=== PATIENT | female | born 1995 | race Caucasian/White ===

== ENCOUNTER 2016-06-18 12:47 | Emergency (ER) | payer MEDICAID ==
[2016-06-18 13:20] VITALS: BP 126/82
--- NOTE | 2016-06-18 13:42 | ERNOTE ---
Integumentary HPI - Narrative Date of Service: 06/18/16 - General Presenting Symptoms: rash Time Seen by Provider: 06/18/16 13:27 Source: patient Exam Limitations: no limitations - Immun/Allergies/Home Medications Immunizations: IMMUNIZATION HX Immunizations Up to Date Yes History of Influenza Vaccine Yes Hx Pneumococcal Vaccination No Allergies/Adverse Reactions: Allergies Allergy/AdvReac Type Severity Reaction Status Date / Time latex AdvReac Verified 06/18/16 13:21 Home Medications: HOME MEDICATIONS Divalproex Sodium 750 mg PO HS 06/18/16 [Last Taken Unknown] Escitalopram Oxalate [Lexapro] 10 mg PO DAILY 06/18/16 [Last Taken Unknown] Nortriptyline HCl 30 mg PO HS 06/18/16 [Last Taken Unknown] Zolpidem Tartrate 10 mg PO HS 06/18/16 [Last Taken Unknown] predniSONE [Prednisone] 3 tab PO DAILY #9 tab 06/18/16 [Last Taken Unknown] - History of Present Illness Narrative: Pt. comes in with c/o diffuse rash that she noticed upon awakening and is itchy. Pt. 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 Pt. denies any prehospital treatment or alleviating factors. Review of Systems - Review of Systems Constitutional: Present: no symptoms reported. Absent: recent illness, fever, chills, weakness, fatigue EYE: Present: no symptoms reported ENT: Present: no symptoms reported Respiratory: Present: no symptoms reported. Absent: shortness of breath, cough , wheezing Cardiology: Present: no symptoms reported. Absent: chest pain, palpitations, edema Gastrointestinal/Abdominal: Present: no symptoms reported. Absent: nausea, vomiting, diarrhea Genitourinary: Present: no symptoms reported Musculoskeletal: Present: no symptoms reported. Absent: back pain, joint pain Skin: Present: rash. Absent: change in color, change in hair/nails Neurological: Present: no symptoms reported Endocrine: Present: no symptoms reported All Other Systems: All systems neg except as marked - Patient's Past Medical History Patient History - Medical: Migraines Patient History - Cardiac/Respiratory: No pertinent hx Patient History - Cancer: No Hx of Cancer Patient History - Surgical Procedures: Other Patient History - Other: None LMP (females 10-50): now - Social History Living Situations: home Abuse History: No History of abuse Psych History: No pertinent hx Smoking Status: Never smoker Alcohol Use: occasionally Drug Use: none - Immunizations Immunizations Up to Date: Yes Hx Pneumococcal Vaccination: No History of Influenza Vaccine: Yes Physical Exam - Physical Exam General Appearance: Present: wd/wn, alert, no apparent distress Eye Exam: Normal inspection: bilateral, PERRL: bilateral, EOMI: bilateral Ears, Nose, Throat: Present: normal ENT inspection, normal pharynx. Absent: pharyngeal swelling, tonsillar swelling Neck: Present: normal inspection, nontender. Absent: lymphadenopathy (R), lymphadenopathy (L) Respiratory: Present: no respiratory distress, normal breath sounds, no accessory muscle use, chest nontender, lungs clear Cardiovascular/Chest: Present: regular rate, rhythm, no murmur, normal peripheral pulses Gastrointestinal/Abdominal: Present: normal bowel sounds, nontender, nondistended, soft, no organomegaly Back Exam: Present: normal inspection, normal range of motion, no CVA tenderness , no vertebral tenderness Extremity Exam: Present: non-tender, normal range of motion, no edema Neurological Exam: Present: alert, oriented, normal mood/affect, no motor/ sensory deficits Skin Exam: Present: normal color, warm/dry, skin rash - diffuse macular rash ED Progress - Date and Time Seen: Date and Time: 06/18/16 13:38 Rash appears suspicious for contact dermatitis due to poison maciel but pt. is unsure if the child she was babysitting yesterday was exposed to this. - Vital Signs Vital Signs: Vital Signs 06/18/16 13:16 Temperature 36.9 C Pulse Rate 81 Respiratory 16 Rate Blood Pressure 126/82 O2 Sat by Pulse 99 Oximetry - Progress/Reassessment Chief Complaint: Rash Departure Clinical Impression: Contact dermatitis Qualifiers: Contact dermatitis type: unspecified Contact dermatitis trigger: unspecified trigger Qualified Code(s): L25.9 - Unspecified contact dermatitis, unspecified cause - Departure Disposition: Home self-care Condition: Good Instructions: Contact Dermatitis, [id number] Additional Instructions: prednisone can affect mood, please stop medicine and call your primary provider. Referrals: Keith Guerrero MD [Primary Care Provider] - Prescriptions: predniSONE [Prednisone] 3 tab PO DAILY #9 tab
--- OUTSIDE RECORDS SUMMARY | 2016-06-18 13:45 | XMS REPORT | Continuity of Care Document ---
:1995 Author Organization [facility] ([facility]) Address [address] [place] [address] Phone [phone] Care Team Providers Name Role Phone Camilo Ryan Primary Care Provider [phone] Source Comments This disclosure is being made pursuant to the Care Everywhere program, applicable federal and state laws, and may not contain all informaitonavailable regarding this patient.[facility] ([facility]) Active Allergies and Adverse Reactions No Known Allergies Current Medications Prescription Sig. Disp. Refills Start Date End Date Status BUPROPION HCL (WELLBUTRIN SR Active PO) TRAZODONE HCL (TRAZODONE PO) Active MEDROXYPROGESTERONE ACETATE inject Active (DEPO-PROVERA IM) intramuscularly . Active Problems Problem Noted Date Heat intolerance 04/28/2012 Depression 04/28/2012 Social History Tobacco Use Types Packs/Day Years Used Date Never Smoker Smokeless Tobacco: Never Used Last Filed Vital Signs Vital Sign Reading Time Taken Blood Pressure 115/72 04/28/2012 12:39 PM [employer] Pulse 81 04/28/2012 12:39 PM [employer] Temperature 36.6 C (97.9 F) 04/28/2012 12:39 PM [employer] Respiratory Rate 18 04/28/2012 12:39 PM [employer] Height 1.677 m (5' 6.02") 04/28/2012 12:39 PM [employer] Weight 67.4 kg (148 lb 9.4 oz) 04/28/2012 12:39 PM [employer] Body Mass Index 23.97 04/28/2012 12:39 PM [employer] Oxygen Saturation - - Plan of Care Health Maintenance Due Date Last Done Comments Hepatitis B Vaccine (1 of 3 - Primary Series) 1994 HPV Vaccine (1 of 3 - Female/Unknown 3 Dose Series) 2005 Tdap Vaccine 2005 Meningococcal Vaccine (1 of 1) 2010 Cervical Cancer Screening 2012 Lipid Disorder Screening 2012 MMR Vaccine 2012 Td Vaccine 2012 Varicella Vaccine (1 of 2 - Adult - No Evidence of 2012 Immunity) Influenza Vaccine: Seasonal (#1) 11/13/2015 Results from Last 3 Months Not on file
[2016-06-18] MEDS ORDERED: METHYLPREDNISOLONE SOD SUCC/PF 40 MG/ML VIAL ONE (14:08)
[2016-06-18] MEDS ORDERED: diphenhydrAMINE HCL 50 MG/ML VIAL ONE (14:08)
[2016-06-18] MEDS: diphenhydrAMINE HCL 50 MG/ML VIAL IM ONE (14:12)
[2016-06-18] MEDS: METHYLPREDNISOLONE SOD SUCC/PF 40 MG/ML VIAL IM ONE (14:13)
== END 2016-06-18 14:27 | disposition home or self-care (01) ==
LOC: ER 12:47
DX: L25.9 Unspecified contact dermatitis, unspecified cause (principal)

== ENCOUNTER 2019-10-04 10:45 | Inpatient (IN) ==
[2019-10-04] MEDS ORDERED: RINGER'S SOLUTION,LACTATED 1,000 ML IV ONE (12:46)
[2019-10-04] MEDS ORDERED: ONDANSETRON 4 MG TAB.RAPDIS PO PRN (12:46)
[2019-10-04] MEDS ORDERED: OXYTOCIN/DEXTROSE 5%-WATER 30 UNITS/500 ML BAG IV ONE ×2 (12:46→18:19)
[2019-10-04] MEDS ORDERED: RINGER'S SOLUTION,LACTATED 1,000 ML IV PRN (12:46)
[2019-10-04] MEDS ORDERED: LIDOCAINE HCL 50 ML VIAL PERI PRN (12:46)
--- NOTE | 2019-10-04 13:26 | HP ---
Chief Complaint - Chief Complaint Date of Service: 10/04/19 Time of Service: 13:05 Chief Complaint: contractions History of Present Illness: 23 yo at 37w5d presents to L&D from office for management of labor. Pt complains of mild contractions but was dilated to 6/80/-1. This complicated by anemia, migraines, and hypothyroidism. Rh positive Rubella immune GBS negative Medical History (Last Reviewed 10/04/19 @ 13:20 by Raul Triana DO) Migraines (Chronic) receives Botox regularly from neurologist to control. Hypothyroidism affecting Onset Date: 03/01/19 Insomnia Onset Date: Unknown Anxiety Onset Date: Unknown Depression Onset Date: 12/20/16 Dyspareunia in female Onset Date: 08/10/14 Migraine Onset Date: ~2002 w/aura Wears glasses Onset Date: Unknown Anxiety and depression (Resolved) no meds for >1-2 years. Deviated nasal septum Onset Date: ~11/2014 Hematuria Onset Date: 05/03/15 History of menorrhagia Onset Date: 08/10/14 Hypothyroidism Irregular menses Onset Date: 08/10/14 Numbness and tingling Onset Date: Unknown Left leg Pelvic pain in female Onset Date: 08/10/14 Vaginitis Onset Date: 05/03/15 Surgical History: Surgical History (Last Reviewed 10/04/19 @ 13:20 by Raul Triana DO) S/P right knee arthroscopy Onset Date: 03/28/15 S/P surgery on nasal septum Onset Date: ~11/2014 Family History: Family History (Last Reviewed 10/04/19 @ 13:20 by Raul Triana DO) Grandmother Diabetes Father Unknown family medical history pt adopted by father Mother Alive and well biological mother Social History: (Last Reviewed 10/04/19 @ 13:20 by Raul Triana DO) Social History: Marital status: Single number of children: 1 current occupational status: employed current occupation: alternative energy technician Highest education level completed: some college, no degree Service: No Tobacco: Smoking Status: Never smoker Alcohol: alcohol intake: former Substance Use: substance use type: does not use Dietary Habits: caffeine: Yes caffeine comment: 4/week Exercise: frequency: other Review Of Systems (GEN) - Review of Systems Generalized/Overall Review: Present: No Symptoms Reported EENTM: Present: No Symptoms Reported Respiratory: Present: No Symptoms Reported Cardiac: Present: No Symptoms Reported Abdominal: Present: No Symptoms Reported, Other - contractions Genitourinary: Present: No Symptoms Reported Musculoskeletal: Present: No Symptoms Reported Neurological: Present: No Symptoms Reported Skin: Present: No Symptoms Reported Endocrine: Present: No Symptoms Reported Immunizations: IMMUNIZATION HX Immunizations Up to Date Yes History of Influenza Vaccine Yes Hx Pneumococcal Vaccination No Allergies/Adverse Reactions: Allergies Allergy/AdvReac Type Severity Reaction Status Date / Time latex AdvReac Verified 10/04/19 11:01 Epidural Allergy MAZARIEGOS's, Uncoded 10/04/19 11:01 Itching Home Medications: HOME MEDICATIONS onabotulinumtoxinA 200 unit solution for injection 200 unit INTRADERMAL .q 3 mo ea 03/01/19 [Last Taken Unknown] prenat.vits,suman,kjh-iwst-hfxij 1 tab PO DAILY 03/01/19 [Last Taken 10/04/19] acetaminophen 500 mg tablet 500 mg PO Q6H PRN 04/26/19 [Last Taken Unknown] Doxylamine Succinate [Unisom] 25 mg PO HS PRN 07/08/19 [Last Taken 10/04/19] levothyroxine 50 mcg tablet 50 mcg PO DAILY #30 tab 08/23/19 [Last Taken 10/04/19] Exam - Exam Vital Signs: Vital Signs - Last Taken Temp 35.5 C L 10/04/19 11:25 Pulse 105 H 10/04/19 11:25 Resp 16 10/04/19 11:25 BP 121/81 10/04/19 11:25 Pulse Ox 96 10/04/19 11:25 Constitutional: Present: Alert, Oriented x3, Cooperative, No distress ENT Exam: Present: hearing grossly normal Neck: Present: non-tender Breasts: Present: Exam deferred Respiratory: Present: lungs clear, no respiratory distress Cardiovascular/Chest: Present: regular rate, rhythm, no edema Abdomen: Present: Normal bowel sounds, soft, nontender, other - gravid /Rectal: Present: Other - Cervix 80/-1 Extremity: Present: no pedal edema, no calf tenderness Skin Exam: Present: normal color, warm/dry, no cyanosis Neurologic: Present: normal mood/affect, oriented x 3 Appearance: Present: appropriate appearance, appropriate insight Eye contact: Present: cooperative, good eye contact Thoughts: Present: normal thought pattern Assessment/Plan - Assessment/Plan (1) Labor established Assessment: Admit for routine management of labor. Epidural and/or pitocin PRN. Problem: Acute (2) Migraines Problem: Chronic Qualifiers: Migraine type: unspecified Intractability: intractable (3) Hypothyroid Problem: Chronic Qualifiers: Hypothyroidism type: unspecified Qualified Code(s): E03.9 - Hypothyroidism, unspecified
--- NOTE | 2019-10-04 13:29 | PN ---
Progess Note - Interim Date: 10/04/19 Time: 12:55 Narrative: 10/04/19 13:27 Patient rating her contractions as mild Vital signs stable. FHT: 145 baseline, reassuring contractions q 4-5 min Cervix: 8/80/-2 Impression: Intrauterine at 37-5/7 weeks in labor Plan: Anticipate normal spontaneous vaginal delivery soon
[2019-10-04] MEDS ORDERED: CALCIUM CARBONATE 500 MG TAB.CHEW PO PRN (13:33)
--- NOTE | 2019-10-04 16:24 | PN ---
Progess Note - Interim Date: 10/04/19 Time: 16:22 Narrative: 10/04/19 16:22 Patient starting to feel her contractions more Vital signs stable. FHT: 145 baseline, reassuring contractions q 2-4 min Cervix: 8/90/-2, AROM-clear Impression: Intrauterine at 37-5/7 weeks in labor Plan: We will add Pitocin 2 milliunits/min for protracted dilation.
--- NOTE | 2019-10-04 18:13 | OR ---
Operative Report - Dictated Report Narrative: Spontaneous vaginal delivery of vigorously crying viable male at 1758 on 10/04/2019 with Apgars 9 and 9, weighing 3795 g in ELLIE position. Cord clamping delayed approximately 1 minute Placenta delivered complete, intact, with three vessel cord Estimated blood loss: Less than 50 ml Anesthesia: Pudendal nerve block Lacerations: Small right periurethral abrasion with no repair needed History for History for Definition: * The number of deliveries resulting in a live the patient experienced prior to current hospitalization * The previous delivery of live twins or any live multiple gestation is considered one live event. *If primagravida or nulliparous is documented select zero for the number of previous live births. Live Events: Live Events: 1
[2019-10-04] MEDS ORDERED: GLYCERIN/WITCH HAZEL LEAF 40 APPL BOX TP PRN (18:19)
[2019-10-04] MEDS ORDERED: SENNOSIDES 8.6 MG TABLET PO PRN (18:19)
[2019-10-04] MEDS ORDERED: BENZOCAINE/MENTHOL 81 SPRAY CAN TP PRN (18:19)
[2019-10-04] MEDS ORDERED: IBUPROFEN 800 MG TABLET PO PRN (18:19)
[2019-10-04] MEDS ORDERED: HYDROCORTISONE 30 APPL TUBE TP PRN (18:19)
[2019-10-04] MEDS ORDERED: BISACODYL 10 MG SUPP.RECT RC PRN (18:19)
[2019-10-04] MEDS ORDERED: LIDOCAINE HCL 50 ML VIAL IJ ONE (18:22)
[2019-10-04] MEDS ORDERED: ONABOTULINUMTOXINA 200 UNIT intradermal SCH (18:30)
[2019-10-04] MEDS: oxyCODONE HCL/ACETAMINOPHEN 1 TAB TABLET PO PRN (19:14)
[2019-10-04] MEDS: DOCUSATE SODIUM 100 MG CAPSULE PO SCH (21:35)
[2019-10-05] MEDS: IBUPROFEN 800 MG TABLET PO PRN ×3 (02:44→20:45)
[2019-10-05] MEDS: oxyCODONE HCL/ACETAMINOPHEN 1 TAB TABLET PO PRN ×4 (02:45→20:45)
--- NOTE | 2019-10-05 08:16 | PN ---
Subjective - Date and Time Seen Date: 10/05/19 Time: 08:14 Objective - Vitals Vitals: Last Vital Signs Temp 35.8 C L 10/05/19 07:00 Pulse 86 10/05/19 07:00 Resp 18 10/05/19 07:00 BP 107/70 10/05/19 07:00 Pulse Ox 99 10/05/19 07:00 Patient denies complaints. Lochia wnl abdomen - soft, nontender Uterus -firm, at umbilicus - 1 no calf tenderness Impression: day #1 - s/p spontaneous vaginal delivery. Hypothyroid. Migraines-stable. High depression screening score Plan: Continue routine care. Monitor closely for signs/symptoms of depression. Assessment/Plan - Problems/Diagnosis (1) Labor established Problem: Acute (2) Migraines Problem: Chronic Qualifiers: Migraine type: unspecified Intractability: intractable (3) Hypothyroid Problem: Chronic Qualifiers: Hypothyroidism type: unspecified Qualified Code(s): E03.9 - Hypothyroidism, unspecified
[2019-10-05] MEDS: DOCUSATE SODIUM 100 MG CAPSULE PO SCH ×2 (08:48→20:48)
[2019-10-05] MEDS ORDERED: PRENAT VITS CAL MIN IRON FOLIC PO SCH (09:00)
[2019-10-05] MEDS ORDERED: LEVOTHYROXINE SODIUM 50 MCG TABLET PO SCH (09:00)
[2019-10-06] MEDS: IBUPROFEN 800 MG TABLET PO PRN (02:46)
[2019-10-06 07:38] VITALS: BP 109/77
--- NOTE | 2019-10-06 09:12 | PN ---
Subjective - Date and Time Seen Date: 10/06/19 Time: 09:10 Objective - Vitals Vitals: Last Vital Signs Temp 35.8 C L 10/06/19 07:37 Pulse 76 10/06/19 07:37 Resp 16 10/06/19 07:37 BP 109/77 10/06/19 07:37 Pulse Ox 99 10/06/19 07:37 Patient complains of some mid back and right rib pain. Denies shortness of breath or chest pain. Breast-feeding. Lochia wnl abdomen - soft, nontender Uterus -firm, at umbilicus - 2 no calf tenderness Impression: day #2 - s/p spontaneous vaginal delivery. Nonallopathic somatic dysfunction. Plan: Routine discharge instructions. OMT to [facility]. Assessment/Plan - Problems/Diagnosis (1) Labor established Problem: Acute (2) Migraines Problem: Chronic Qualifiers: Migraine type: unspecified Intractability: intractable (3) Hypothyroid Problem: Chronic Qualifiers: Hypothyroidism type: unspecified Qualified Code(s): E03.9 - Hypothyroidism, unspecified
== END 2019-10-06 10:25 | disposition home or self-care (01) | DRG 807 ==
LOC: OB 10:45
PROVIDERS: ADMIT Obstetrics & Gynecology; ATTEND Obstetrics & Gynecology
CPT/HCPCS: 59025